=== PATIENT | female | born 1970 | race Two or more races ===

== ENCOUNTER 2023-05-14 19:49 | Emergency (ER) | payer OTHER ==
[~2023-05-14] VITALS: Ht 152.4 cm; Wt 47.6 kg
== END 2023-05-14 22:11 | disposition home or self-care (01) ==
LOC: ER 19:49
DX: L50.9 Urticaria, unspecified (principal); T50.995A Adverse effect of other drugs, medicaments and biological substances, initial encounter; Z88.8 Allergy status to other drugs, medicaments and biological substances; E78.00 Pure hypercholesterolemia, unspecified; I10 Essential (primary) hypertension